=== PATIENT | male | born 1950 | race Caucasian/White ===

== ENCOUNTER 2019-01-16 08:58 | Inpatient (IN) | payer MEDICARE, MEDICAID ==
[~2019-01-16] VITALS: Ht 170.2 cm; Wt 86.8 kg
[~2019-01-16 08:58] MED LIST: ASPI-1159 PO; ATOR40TA70 PO; CARV25TA47 PO; CLON2TAB PO; CLOP75TA33 PO; PROT40 PO; SEVE800T8 PO
[2019-01-16] MEDS ORDERED: MORPHINE SULFATE 4 MG/ML CPJ (NOT FOR IM USE) IV STA ×2 (09:11→13:19)
[2019-01-16] MEDS ORDERED: ONDANSETRON HCL 4MG/2ML INJ IV STA (09:11)
[2019-01-16] MEDS ORDERED: ASPIRIN 325MG EC TABLET PO ONE ×2 (09:15→14:15)
[2019-01-16 09:31] LABS: CHLORIDE 98 mEq/L (98-107)
[2019-01-16 09:37] LABS: BASOPHILS % 3.3 % (0.0-2.0); HEMATOCRIT. 32.3 % (42.0-52.0); HEMOGLOBIN. 11.2 g/dL (14.0-18.0); LYMPHOCYTES % 13.3 % (20.0-50.0); MEAN CORPUSCULAR HEMOGLOBIN 32.6 pg (28.0-32.0); MEAN CORPUSCULAR VOLUME 94.4 fL (80.0-94.0); MEAN PLATELET VOLUME 7.2 fl (7.4-10.4); MONOCYTES % 8.5 % (2.0-8.0); NEUTROPHILS % 60.9 % (40.0-76.0); PLATELET 214 x1000/uL (130-400); RED BLOOD CELL COUNT 3.42 mill/uL (4.7-6.1); RED CELL DISTRIBUTION WIDTH 19.7 % (11.6-14.6)
[2019-01-16] MEDS ORDERED: CLONIDINE 0.1MG TABLET PO PRN (10:15)
[2019-01-16] MEDS ORDERED: GUAIFENESIN 200MG/10ML SUGAR FREE UDC PO PRN (10:15)
[2019-01-16] MEDS ORDERED: MAGNESIUM/ALUMINUM HYDROXIDE/SIMETHICONE 30ML UDC PO PRN (10:15)
[2019-01-16] MEDS ORDERED: ACETAMINOPHEN 325MG TABLET PO PRN (10:15)
[2019-01-16] MEDS ORDERED: HYDROCODONE/ACETAMINOPHEN 5/325MG TABLET PO PRN (10:15)
[2019-01-16] MEDS ORDERED: LORAZEPAM 2MG/ML CPJ IV PRN (10:15)
[2019-01-16] MEDS ORDERED: NA PHOS,M-B/NA PHOS,DI-BA ENEMA 118ML PR PRN (10:15)
[2019-01-16] MEDS ORDERED: DOCUSATE SODIUM 100MG CAPSULE PO PRN (10:15)
[2019-01-16] MEDS ORDERED: MORPHINE SULFATE 4 MG/ML CPJ (NOT FOR IM USE) IV PRN (10:15)
[2019-01-16] MEDS ORDERED: IPRATROPIUM/ALBUTEROL 0.5-3(2.5)MG/3ML NEB INH PRN (10:15)
[2019-01-16] MEDS: ONDANSETRON HCL 4MG/2ML INJ IV PRN (13:51)
[2019-01-16 14:45] VITALS: BP 128/57
[2019-01-16] MEDS ORDERED: DEXTROSE 50% WATER 50ML SYRINGE IV PRN (17:00)
[2019-01-16] MEDS: CLOPIDOGREL 75MG TABLET PO SCH (17:05)
[2019-01-16] MEDS: MORPHINE SULFATE 4 MG/ML CPJ (NOT FOR IM USE) IV PRN ×2 (17:07→21:17)
[2019-01-16] MEDS: METOPROLOL TARTRATE 25MG TABLET PO SCH ×2 (17:07→21:00)
[2019-01-16] MEDS: BLOOD SUGAR DIAGNOSTIC STRIP TEST SCH ×2 (17:20→21:11)
[2019-01-16 17:56] VITALS: BP 125/77
[2019-01-16] MEDS: INSULIN LISPRO 100 UNITS/ML SUBCUT SCH ×2 (19:05→21:00)
[2019-01-16] MEDS: SEVELAMER CARBONATE 800 MG TABLET PO SCH (19:06)
[2019-01-16 20:52] VITALS: BP 99/50
[2019-01-16] MEDS ORDERED: ATORVASTATIN CALCIUM 20MG TABLET PO SCH (21:00)
[2019-01-17] VITALS (7 sets, daily range): BP systolic 100–116; BP diastolic 51–63
[2019-01-17] MEDS: MORPHINE SULFATE 4 MG/ML CPJ (NOT FOR IM USE) IV PRN ×5 (02:08→20:54)
[2019-01-17 06:12] LABS: HEMATOCRIT. 30.2 % (42.0-52.0); HEMOGLOBIN. 10.5 g/dL (14.0-18.0); MEAN PLATELET VOLUME 7.5 fl (7.4-10.4); PLATELET 182 x1000/uL (130-400); RED BLOOD CELL COUNT 3.18 mill/uL (4.7-6.1); RED CELL DISTRIBUTION WIDTH 20.1 % (11.6-14.6)
[2019-01-17 06:14] LABS: CHLORIDE 98 mEq/L (98-107)
[2019-01-17 06:21] LABS: LDL CHOLESTEROL 47 mg/dL (5-100)
[2019-01-17 06:22] LABS: HDL CHOLESTEROL 40 mg/dL (40-59)
[2019-01-17] MEDS: BLOOD SUGAR DIAGNOSTIC STRIP TEST SCH ×4 (06:22→20:50)
[2019-01-17 06:23] LABS: T4 FREE 0.92 ng/dL (0.76-1.46)
[2019-01-17] MEDS ORDERED: AMLO10TA80 MT (07:45)
[2019-01-17] MEDS ORDERED: ALPR2TAB2 MT (07:45)
[2019-01-17] MEDS ORDERED: METO-539 MT (07:45)
[2019-01-17] MEDS ORDERED: CLOP75TA16 PO (07:45)
[2019-01-17] MEDS: INSULIN LISPRO 100 UNITS/ML SUBCUT SCH ×4 (07:50→20:50)
[2019-01-17] MEDS: ONDANSETRON HCL 4MG/2ML INJ IV PRN ×2 (08:50→20:58)
[2019-01-17] MEDS: SEVELAMER CARBONATE 800 MG TABLET PO SCH ×3 (08:52→16:58)
[2019-01-17] MEDS: METOPROLOL TARTRATE 25MG TABLET PO SCH ×2 (08:55→20:50)
[2019-01-17] MEDS: ASPIRIN 81MG EC TABLET PO SCH (08:55)
[2019-01-17] MEDS: CLOPIDOGREL 75MG TABLET PO SCH (08:55)
[2019-01-17 11:16] LABS: CREATINE KINASE 79 IU/L (39-308); CREATINE KINASE MB FRACTION 2.6 ng/mL (0.5-3.6)
[2019-01-17 11:27] LABS: PLATELET ESTIMATE NORMAL
[2019-01-17] MEDS: METOCLOPRAMIDE HCL 5MG TABLET PO SCH ×3 (12:10→20:54)
[2019-01-17] MEDS ORDERED: PANTOPRAZOLE 40MG DR TABLET PO SCH (16:45)
[2019-01-17] MEDS: ATORVASTATIN CALCIUM 10MG TABLET PO SCH (20:50)
[2019-01-18 00:10] VITALS: BP 108/81
[2019-01-18] MEDS: MORPHINE SULFATE 4 MG/ML CPJ (NOT FOR IM USE) IV PRN ×2 (01:18→06:03)
[2019-01-18 04:45] VITALS: BP 135/69
[2019-01-18] MEDS: BLOOD SUGAR DIAGNOSTIC STRIP TEST SCH ×4 (06:21→20:17)
[2019-01-18] MEDS: METOCLOPRAMIDE HCL 5MG TABLET PO SCH ×4 (06:21→20:22)
[2019-01-18] MEDS: PANTOPRAZOLE 40MG DR TABLET PO SCH (06:26)
[2019-01-18] MEDS: INSULIN LISPRO 100 UNITS/ML SUBCUT SCH ×4 (07:50→20:17)
[2019-01-18 08:00] VITALS: BP 113/53
[2019-01-18 08:02] LABS: CHLORIDE 97 mEq/L (98-107)
[2019-01-18] MEDS: SEVELAMER CARBONATE 800 MG TABLET PO SCH ×3 (08:11→17:38)
[2019-01-18] MEDS: CLOPIDOGREL 75MG TABLET PO SCH (08:12)
[2019-01-18] MEDS: ASPIRIN 81MG EC TABLET PO SCH (08:12)
[2019-01-18] MEDS: METOPROLOL TARTRATE 25MG TABLET PO SCH (08:13)
[2019-01-18 12:00] VITALS: BP 132/75
[2019-01-18] MEDS: DIPHENHYDRAMINE 50MG/ML VIAL IV PRN ×2 (13:25→17:38)
[2019-01-18] MEDS: HYDROMORPHONE HCL/PF 2MG/ML CPJ IV PRN ×2 (14:01→20:24)
[2019-01-18 16:00] VITALS: BP 100/79
[2019-01-18 20:07] VITALS: BP 137/36
[2019-01-18] MEDS: ATORVASTATIN CALCIUM 10MG TABLET PO SCH (20:22)
[2019-01-18] MEDS: METOPROLOL TARTRATE 50MG TABLET PO SCH (20:23)
[2019-01-19] VITALS: BP 115/40
[2019-01-19 04:00] VITALS: BP 118/55
[2019-01-19] MEDS: HYDROMORPHONE HCL/PF 2MG/ML CPJ IV PRN (06:08)
[2019-01-19] MEDS: METOCLOPRAMIDE HCL 5MG TABLET PO SCH ×2 (06:20→15:01)
[2019-01-19] MEDS: BLOOD SUGAR DIAGNOSTIC STRIP TEST SCH ×2 (06:20→12:20)
[2019-01-19] MEDS: PANTOPRAZOLE 40MG DR TABLET PO SCH (06:20)
[2019-01-19 06:48] LABS: HEMATOCRIT. 29.4 % (42.0-52.0); MEAN CORPUSCULAR HEMOGLOBIN 32.8 pg (28.0-32.0); MEAN CORPUSCULAR VOLUME 96.8 fL (80.0-94.0); MEAN PLATELET VOLUME 7.8 fl (7.4-10.4); PLATELET 184 x1000/uL (130-400); RED BLOOD CELL COUNT 3.04 mill/uL (4.7-6.1); RED CELL DISTRIBUTION WIDTH 19.2 % (11.6-14.6)
[2019-01-19] MEDS: INSULIN LISPRO 100 UNITS/ML SUBCUT SCH ×2 (07:50→12:50)
[2019-01-19 08:19] VITALS: BP 131/60
[2019-01-19] MEDS ORDERED: FOLIC ACID/VITAMIN B COMP W-C TABLET PO SCH (09:00)
[2019-01-19] MEDS: SEVELAMER CARBONATE 800 MG TABLET PO SCH ×2 (09:01→15:00)
[2019-01-19] MEDS: CLOPIDOGREL 75MG TABLET PO SCH (09:02)
[2019-01-19] MEDS: METOPROLOL TARTRATE 50MG TABLET PO SCH (09:02)
[2019-01-19 09:03] LABS: PLATELET ESTIMATE NORMAL
[2019-01-19 12:10] VITALS: BP 126/41
[2019-01-19] MEDS: ASPIRIN 81MG EC TABLET PO SCH (15:01)
[2019-01-19] MEDS: DIPHENHYDRAMINE 50MG/ML VIAL IV PRN (15:11)
[2019-01-19 16:00] VITALS: BP 134/63
[2019-01-19 16:02] VITALS: BP 129/81
== END 2019-01-19 18:06 | disposition home health service (06) | DRG 302 ==
LOC: ER 08:58 → 6WST 10:06 → EDBEDREQ 10:08 → EDBEDREQTM 10:08 → ENRESERV 14:01 → CANRESERV 14:01
PROVIDERS: ADMIT Internal Medicine; ATTEND Internal Medicine
PROC: 5A1D70Z Performance of Urinary Filtration, Intermittent, Less than 6 Hours Per Day (ICD-10-PCS; principal; 2019-01-18)
DX: I25.10 Atherosclerotic heart disease of native coronary artery without angina pectoris (principal); N18.6 End stage renal disease; I13.2 Hypertensive heart and chronic kidney disease with heart failure and with stage 5 chronic kidney disease, or end stage renal disease; E46 Unspecified protein-calorie malnutrition; E78.5 Hyperlipidemia, unspecified; I50.9 Heart failure, unspecified; I27.20 Pulmonary hypertension, unspecified; K29.70 Gastritis, unspecified, without bleeding; E87.5 Hyperkalemia; I25.5 Ischemic cardiomyopathy; I49.3 Ventricular premature depolarization; E11.40 Type 2 diabetes mellitus with diabetic neuropathy, unspecified; E11.22 Type 2 diabetes mellitus with diabetic chronic kidney disease; E11.51 Type 2 diabetes mellitus with diabetic peripheral angiopathy without gangrene; I25.2 Old myocardial infarction; Z89.439 Acquired absence of unspecified foot; Z95.1 Presence of aortocoronary bypass graft; Z99.2 Dependence on renal dialysis; Z68.30 Body mass index [BMI] 30.0-30.9, adult; Z79.82 Long term (current) use of aspirin; Z79.02 Long term (current) use of antithrombotics/antiplatelets
CPT/HCPCS: 36415; 71045; 80048; 80061; 82550; 82553; 82962; 83735; 83880; 84439; 84443; 84484; 93005; 93306; 96374; 96375; 96376; 97162; 99285; J1170; J1200; J1815; J2060; J2270; J2405; J8597

== ENCOUNTER 2021-08-12 05:24 | Inpatient (IN) | payer MEDICARE, MEDICAID ==
[~2021-08-12] VITALS: Ht 170.2 cm; Wt 82.1 kg
[~2021-08-12 05:24] MED LIST changes: +ALPR2TAB2 MT; +AMLO10TA80 MT; -ASPI-1159 PO; +ASPI-1497 PO; +CHOL200010 PO; +METO-539 MT
[2021-08-12] MEDS ORDERED: MORPHINE SULFATE 4 MG/ML CPJ (NOT FOR IM USE) IV STA (05:53)
[2021-08-12 06:20] LABS: HEMATOCRIT. 32.6 % (42.0-52.0); HEMOGLOBIN. 10.9 g/dL (14.0-18.0); MEAN CORPUSCULAR HEMOGLOBIN 30.3 pg (28.0-32.0); MEAN CORPUSCULAR VOLUME 91.1 fL (80.0-94.0); MEAN PLATELET VOLUME 8.4 fl (7.4-10.4); PLATELET 209 x1000/uL (130-400); RED BLOOD CELL COUNT 3.58 mill/uL (4.7-6.1); RED CELL DISTRIBUTION WIDTH 15.5 % (11.6-14.6)
[2021-08-12 06:25] LABS: CHLORIDE 103 mEq/L (98-107)
[2021-08-12] MEDS ORDERED: SODIUM BICARBONATE 8.4% 1 MEQ/ML 50ML SYR IV ONE (07:00)
[2021-08-12] MEDS ORDERED: DEXTROSE 50% WATER 50ML SYRINGE IV ONE (07:00)
[2021-08-12] MEDS ORDERED: CALCIUM CHLORIDE 1GM/10ML SYR IV ONE (07:00)
[2021-08-12] MEDS ORDERED: ALBUTEROL (0.083%) 2.5MG/3ML NEB HHN ONE (07:00)
[2021-08-12] MEDS ORDERED: INSULIN REGULAR (HUMULIN R) 300UNITS/3ML VIAL IV ONE (07:00)
[2021-08-12] MEDS ORDERED: MAGNESIUM/ALUMINUM HYDROXIDE/SIMETHICONE 30ML UDC PO PRN (07:30)
[2021-08-12] MEDS ORDERED: DEXTROSE 50% WATER 50ML SYRINGE IV PRN (07:30)
[2021-08-12] MEDS ORDERED: DOCUSATE SODIUM 100MG CAPSULE PO PRN (07:30)
[2021-08-12] MEDS ORDERED: GUAIFENESIN 200MG/10ML SUGAR FREE UDC PO PRN (07:30)
[2021-08-12] MEDS ORDERED: ACETAMINOPHEN 325MG TABLET PO PRN (07:30)
[2021-08-12] MEDS ORDERED: IPRATROPIUM/ALBUTEROL 0.5-3(2.5)MG/3ML NEB HHN PRN (07:30)
[2021-08-12] MEDS ORDERED: HYDROCODONE/ACETAMINOPHEN 5/325MG TABLET PO PRN (07:30)
[2021-08-12] MEDS ORDERED: CLONIDINE 0.1MG TABLET PO PRN (07:30)
[2021-08-12] MEDS ORDERED: ENOXAPARIN 40MG/0.4ML SYR SUBCUT SCH (07:30)
[2021-08-12] MEDS ORDERED: NALOXONE HCL 0.4MG/ML VIAL IV PRN (07:30)
[2021-08-12] MEDS ORDERED: HYDRALAZINE 20MG/ML VIAL IV PRN (07:30)
[2021-08-12 08:02] LABS: PLATELET ESTIMATE NORMAL
[2021-08-12] MEDS: INSULIN LISPRO 100 UNITS/ML SUBCUT SCH ×4 (08:20→20:21)
[2021-08-12] MEDS: BLOOD SUGAR DIAGNOSTIC STRIP TEST SCH ×4 (08:43→20:21)
[2021-08-12 11:54] LABS: HEPATITIS B SURFACE ANTIGEN NEGATIVE
[2021-08-12 12:00] VITALS: BP 156/138
[2021-08-12] MEDS: MORPHINE SULFATE 2 MG/ML CPJ (NOT FOR IM USE) IV PRN ×2 (13:53→22:46)
[2021-08-12 14:00] VITALS: BP 162/66
[2021-08-12] MEDS: SODIUM CHLORIDE 0.9% INJ 3ML FLUSH IVF SCH ×2 (14:00→22:00)
[2021-08-12 14:04] LABS: CREATINE KINASE 76 IU/L (39-308)
[2021-08-12 14:06] LABS: CREATINE KINASE MB FRACTION 3.5 ng/mL (0.5-3.6)
[2021-08-12 14:17] VITALS: BP 142/53
[2021-08-12 16:00] VITALS: BP 169/107
[2021-08-12 18:00] VITALS: BP 166/74
[2021-08-12] MEDS ORDERED: PANTOPRAZOLE 40MG DR TABLET PO NR (18:38)
[2021-08-12 20:00] VITALS: BP 127/93
[2021-08-12] MEDS: ENOXAPARIN 30MG/0.3ML SYR SUBCUT SCH (20:12)
[2021-08-12] MEDS: ATORVASTATIN CALCIUM 40MG TABLET PO SCH (20:12)
[2021-08-12] MEDS: METOPROLOL TARTRATE 25MG TABLET PO SCH (20:20)
[2021-08-12] MEDS: LORAZEPAM 2MG/ML CPJ IV PRN (22:45)
[2021-08-13] VITALS (11 sets, daily range): BP systolic 96–160; BP diastolic 44–89
[2021-08-13 00:15] LABS: CREATINE KINASE 61 IU/L (39-308)
[2021-08-13 00:16] LABS: CREATINE KINASE MB FRACTION 3.8 ng/mL (0.5-3.6)
[2021-08-13] MEDS: SODIUM CHLORIDE 0.9% INJ 3ML FLUSH IVF SCH ×3 (05:08→20:46)
[2021-08-13 06:56] LABS: HEMATOCRIT. 32.8 % (42.0-52.0); HEMOGLOBIN. 10.9 g/dL (14.0-18.0); MEAN CORPUSCULAR HEMOGLOBIN 30.3 pg (28.0-32.0); MEAN CORPUSCULAR VOLUME 91.6 fL (80.0-94.0); MEAN PLATELET VOLUME 8.5 fl (7.4-10.4); PLATELET 169 x1000/uL (130-400); RED BLOOD CELL COUNT 3.58 mill/uL (4.7-6.1); RED CELL DISTRIBUTION WIDTH 15.5 % (11.6-14.6)
[2021-08-13 07:05] LABS: CHLORIDE 105 mEq/L (98-107)
[2021-08-13] MEDS: BLOOD SUGAR DIAGNOSTIC STRIP TEST SCH ×4 (07:30→20:47)
[2021-08-13] MEDS: INSULIN LISPRO 100 UNITS/ML SUBCUT SCH ×4 (08:00→20:47)
[2021-08-13] MEDS: CLOPIDOGREL 75MG TABLET PO SCH (09:00)
[2021-08-13] MEDS: ENOXAPARIN 30MG/0.3ML SYR SUBCUT SCH (09:06)
[2021-08-13] MEDS: MORPHINE SULFATE 2 MG/ML CPJ (NOT FOR IM USE) IV PRN ×3 (09:11→18:34)
[2021-08-13] MEDS: ASPIRIN 81MG EC TABLET PO SCH (09:15)
[2021-08-13] MEDS: METOPROLOL TARTRATE 25MG TABLET PO SCH ×2 (09:16→20:45)
[2021-08-13 17:31] LABS: PLATELET ESTIMATE NORMAL
[2021-08-13] MEDS: ATORVASTATIN CALCIUM 40MG TABLET PO SCH (20:44)
[2021-08-13] MEDS: LORAZEPAM 2MG/ML CPJ IV PRN (23:58)
[2021-08-14] VITALS: BP 141/58
[2021-08-14] MEDS: MORPHINE SULFATE 2 MG/ML CPJ (NOT FOR IM USE) IV PRN ×4 (00:39→19:33)
[2021-08-14 04:00] VITALS: BP 117/50
[2021-08-14] MEDS: SODIUM CHLORIDE 0.9% INJ 3ML FLUSH IVF SCH ×3 (05:19→21:09)
[2021-08-14] MEDS: INSULIN LISPRO 100 UNITS/ML SUBCUT SCH ×4 (07:06→21:00)
[2021-08-14] MEDS: BLOOD SUGAR DIAGNOSTIC STRIP TEST SCH ×4 (07:06→21:08)
[2021-08-14 07:27] LABS: HEMOGLOBIN. 10.2 g/dL (14.0-18.0); MEAN CORPUSCULAR HEMOGLOBIN 30.2 pg (28.0-32.0); MEAN CORPUSCULAR VOLUME 91.9 fL (80.0-94.0); MEAN PLATELET VOLUME 8.4 fl (7.4-10.4); PLATELET 174 x1000/uL (130-400); RED BLOOD CELL COUNT 3.37 mill/uL (4.7-6.1); RED CELL DISTRIBUTION WIDTH 15.1 % (11.6-14.6)
[2021-08-14 08:00] VITALS: BP 100/61
[2021-08-14] MEDS: METOPROLOL TARTRATE 25MG TABLET PO SCH ×2 (09:00→21:00)
[2021-08-14] MEDS ORDERED: REGADENOSON 0.4 MG/5 ML IV NR (09:15)
[2021-08-14] MEDS ORDERED: REGADENOSON 0.4 MG/5 ML IV ONE (11:28)
[2021-08-14 12:00] VITALS: BP 126/39
[2021-08-14] MEDS: CLOPIDOGREL 75MG TABLET PO SCH (13:06)
[2021-08-14] MEDS: ASPIRIN 81MG EC TABLET PO SCH (13:07)
[2021-08-14] MEDS: ENOXAPARIN 30MG/0.3ML SYR SUBCUT SCH (13:07)
[2021-08-14 15:20] LABS: PLATELET ESTIMATE NORMAL
[2021-08-14 16:00] VITALS: BP 127/69
[2021-08-14 20:00] VITALS: BP 129/81
[2021-08-14] MEDS: ATORVASTATIN CALCIUM 40MG TABLET PO SCH (21:09)
[2021-08-14] MEDS: DIPHENHYDRAMINE 50MG/ML VIAL IV PRN (23:26)
[2021-08-15] VITALS: BP 140/54
[2021-08-15] MEDS: MORPHINE SULFATE 2 MG/ML CPJ (NOT FOR IM USE) IV PRN ×4 (01:37→23:02)
[2021-08-15 04:00] VITALS: BP 127/83
[2021-08-15] MEDS: INSULIN LISPRO 100 UNITS/ML SUBCUT SCH ×4 (05:34→21:00)
[2021-08-15] MEDS: SODIUM CHLORIDE 0.9% INJ 3ML FLUSH IVF SCH ×3 (05:34→21:40)
[2021-08-15] MEDS: BLOOD SUGAR DIAGNOSTIC STRIP TEST SCH ×4 (05:34→20:13)
[2021-08-15 08:00] VITALS: BP 139/91
[2021-08-15] MEDS: ASPIRIN 81MG EC TABLET PO SCH (09:00)
[2021-08-15] MEDS: ENOXAPARIN 30MG/0.3ML SYR SUBCUT SCH (09:10)
[2021-08-15] MEDS: METOPROLOL TARTRATE 25MG TABLET PO SCH ×2 (09:10→21:00)
[2021-08-15] MEDS: CLOPIDOGREL 75MG TABLET PO SCH (09:10)
[2021-08-15] MEDS: ONDANSETRON HCL 4MG/2ML INJ IV PRN ×2 (09:21→16:58)
[2021-08-15 12:00] VITALS: BP 131/53
[2021-08-15 15:53] LABS: BASOPHILS % 1.1 % (0.0-2.0); EOSINOPHILS % 19.7 % (0.0-5.0); HEMATOCRIT. 30.7 % (42.0-52.0); LYMPHOCYTES % 15.9 % (20.0-50.0); MEAN CORPUSCULAR HEMOGLOBIN 30.3 pg (28.0-32.0); MEAN CORPUSCULAR VOLUME 92.9 fL (80.0-94.0); MEAN PLATELET VOLUME 8.5 fl (7.4-10.4); MONOCYTES % 9.5 % (2.0-8.0); NEUTROPHILS % 53.8 % (40.0-76.0); PLATELET 174 x1000/uL (130-400); RED CELL DISTRIBUTION WIDTH 15.2 % (11.6-14.6)
[2021-08-15 16:00] VITALS: BP 126/63
[2021-08-15 20:00] VITALS: BP_SYST 122; BP_DIAS 42; BP_DIAS 52
[2021-08-15] MEDS ORDERED: SODIUM BICARBONATE 8.4% 1 MEQ/ML 50ML SYR IV NR (20:55)
[2021-08-15] MEDS ORDERED: DEXTROSE 50% WATER 50ML SYRINGE IV NR (20:55)
[2021-08-15] MEDS ORDERED: INSULIN REGULAR (HUMULIN R) UD 100 UNITS/ML SYR IV NR (21:30)
[2021-08-15] MEDS ORDERED: SODIUM POLYSTYRENE SULFONATE 15 G/60 ML BOT PO NR (21:30)
[2021-08-15] MEDS: ATORVASTATIN CALCIUM 40MG TABLET PO SCH (21:43)
[2021-08-16] VITALS: BP 102/46
[2021-08-16 03:23] VITALS: BP 119/54
[2021-08-16] MEDS: DIPHENHYDRAMINE 50MG/ML VIAL IV PRN ×2 (04:00→08:33)
[2021-08-16] MEDS: BLOOD SUGAR DIAGNOSTIC STRIP TEST SCH ×2 (04:56→12:10)
[2021-08-16] MEDS: INSULIN LISPRO 100 UNITS/ML SUBCUT SCH ×2 (05:59→12:40)
[2021-08-16] MEDS: SODIUM CHLORIDE 0.9% INJ 3ML FLUSH IVF SCH ×2 (06:00→12:58)
[2021-08-16 06:45] LABS: BASOPHILS % 0.9 % (0.0-2.0); EOSINOPHILS % 13.8 % (0.0-5.0); HEMATOCRIT. 31.1 % (42.0-52.0); HEMOGLOBIN. 10.1 g/dL (14.0-18.0); LYMPHOCYTES % 14.3 % (20.0-50.0); MEAN CORPUSCULAR VOLUME 92.1 fL (80.0-94.0); MEAN PLATELET VOLUME 8.5 fl (7.4-10.4); MONOCYTES % 11.4 % (2.0-8.0); NEUTROPHILS % 59.6 % (40.0-76.0); PLATELET 166 x1000/uL (130-400); RED BLOOD CELL COUNT 3.37 mill/uL (4.7-6.1)
[2021-08-16 08:00] VITALS: BP 114/54
[2021-08-16] MEDS: ENOXAPARIN 30MG/0.3ML SYR SUBCUT SCH (08:27)
[2021-08-16] MEDS: ASPIRIN 81MG EC TABLET PO SCH (08:27)
[2021-08-16] MEDS: CLOPIDOGREL 75MG TABLET PO SCH (08:27)
[2021-08-16] MEDS: METOPROLOL TARTRATE 25MG TABLET PO SCH (08:28)
[2021-08-16] MEDS: ONDANSETRON HCL 4MG/2ML INJ IV PRN (08:39)
[2021-08-16] MEDS: MORPHINE SULFATE 2 MG/ML CPJ (NOT FOR IM USE) IV PRN (08:40)
[2021-08-16 10:29] VITALS: BP 114/54
[2021-08-16] MEDS ORDERED: CHLORDIAZEPOXIDE 25MG CAPSULE PO SCH (14:00)
== END 2021-08-16 13:45 | disposition home health service (06) | DRG 302 ==
LOC: ER 05:24 → 5EST 06:59 → EDBEDREQTM 07:25 → EDBEDREQ 07:25 → ENRESERV 10:26 → 8WST 08-13 16:34
PROVIDERS: ADMIT Internal Medicine; ATTEND Internal Medicine
PROC: 5A1D70Z Performance of Urinary Filtration, Intermittent, Less than 6 Hours Per Day (ICD-10-PCS; 2021-08-12)
PROC: 5A1D70Z Performance of Urinary Filtration, Intermittent, Less than 6 Hours Per Day (ICD-10-PCS; 2021-08-14)
PROC: 5A1D70Z Performance of Urinary Filtration, Intermittent, Less than 6 Hours Per Day (ICD-10-PCS; principal; 2021-08-15)
DX: I25.110 Atherosclerotic heart disease of native coronary artery with unstable angina pectoris (principal); I50.43 Acute on chronic combined systolic (congestive) and diastolic (congestive) heart failure; N18.6 End stage renal disease; I13.2 Hypertensive heart and chronic kidney disease with heart failure and with stage 5 chronic kidney disease, or end stage renal disease; E46 Unspecified protein-calorie malnutrition; D64.9 Anemia, unspecified; E11.22 Type 2 diabetes mellitus with diabetic chronic kidney disease; E11.40 Type 2 diabetes mellitus with diabetic neuropathy, unspecified; E11.51 Type 2 diabetes mellitus with diabetic peripheral angiopathy without gangrene; E78.00 Pure hypercholesterolemia, unspecified; E78.5 Hyperlipidemia, unspecified; E87.5 Hyperkalemia; I27.20 Pulmonary hypertension, unspecified; I07.1 Rheumatic tricuspid insufficiency; J44.9 Chronic obstructive pulmonary disease, unspecified; Z20.822 Contact with and (suspected) exposure to COVID-19; F17.210 Nicotine dependence, cigarettes, uncomplicated; I16.0 Hypertensive urgency; I25.2 Old myocardial infarction; Z95.1 Presence of aortocoronary bypass graft; Z95.5 Presence of coronary angioplasty implant and graft; Z99.2 Dependence on renal dialysis; Z68.28 Body mass index [BMI] 28.0-28.9, adult; Z79.82 Long term (current) use of aspirin; Z79.899 Other long term (current) drug therapy; Z89.432 Acquired absence of left foot; Z89.431 Acquired absence of right foot; Z71.6 Tobacco abuse counseling
CPT/HCPCS: 36415; 71045; 78452; 80048; 80053; 82550; 82553; 82962; 83880; 84443; 84484; 85025; 86705; 86709; 86803; 87340; 87426; 93005; 93017; 93306; 93970; 94640; 99291; A9500; J1200; J1650; J1815; J2060; J2270; J2405; J2785; J3490